=== PATIENT | female | born 1955 | race African-American/Black ===

== ENCOUNTER 2017-09-22 17:34 | Emergency (ER) | payer BC ==
--- NOTE | 2017-09-22 17:42 | PDOC ---
Rapid Medical Evaluation Chief Complaint: Pain, Acute Time Seen by Provider: 09/22/17 17:36 Medical Evaluation: Allergies Allergy/AdvReac Type Severity Reaction Status Date / Time No Known Drug Allergies Allergy Verified 09/22/17 17:35 09/22/17 17:37 The patient presents with a chief complaint of:sacha knee pain x 3 yrs. worst over 3 weeks.no fall, States knees are "bone on bone" no improvement with motrin , noncompliant with BP meds. I have performed a brief in-person evaluation of this patient. Pertinent physical exam findings: bp elevated on BUE 204/119 I have ordered the following:to verify with pharmacy The patient will proceed to the ED for further evaluation.
[2017-09-22 17:47] VITALS: TEMP 98.1; BMI 37.5
--- NOTE | 2017-09-22 18:08 | PDOC ---
History of Present Illness - General Chief Complaint: Pain, Acute Stated Complaint: PAIN IN BOTH KNEES Time Seen by Provider: 09/22/17 17:36 History Source: Patient Exam Limitations: No Limitations - History of Present Illness Initial Comments: 09/22/17 18:03 62 yr female history of HTN, high cholesterol non compliant with the HTN meds states she has pain to her knees for 3 weeks needs to see her orthopedist. Pt denies any recent trauma denies headache or dizzyness. Past History - Past Medical History Allergies/Adverse Reactions: Allergies Allergy/AdvReac Type Severity Reaction Status Date / Time No Known Drug Allergies Allergy Verified 09/22/17 17:35 Home Medications: Ambulatory Orders Naproxen [Naprosyn -] 500 mg PO BID PRN #28 tablet 09/22/17 Olmesartan/Amlodipin/Hcthiazid [Tribenzor 40-5-25 mg Tablet] 1 each PO ASDIR # 30 tablet 09/22/17 COPD: No DVT: No HTN: Yes Hypercholesterolemia: Yes - Immunization History Immunization Up to Date: Yes - Suicide/Smoking/Psychosocial Hx Smoking History: Never smoked Have you smoked in the past 12 months: No If you are a former smoker, when did you quit?: 40 YEARS AGO Information on smoking cessation initiated: No Hx Alcohol Use: No Drug/Substance Use Hx: No Substance Use Type: Alcohol Hx Substance Use Treatment: No *Physical Exam - Vital Signs Last Vital Signs Temp Pulse Resp BP Pulse Ox 98.1 F 92 H 17 194/116 98 09/22/17 17:36 09/22/17 17:36 09/22/17 17:36 09/22/17 17:36 09/22/17 17:36 - Physical Exam General Appearance: Yes: Nourished, Appropriately Dressed HEENT: positive: EOMI, YASHIRA Neck: positive: Supple Respiratory/Chest: positive: Lungs Clear, Normal Breath Sounds Cardiovascular: positive: Regular Rhythm, Regular Rate Gastrointestinal/Abdominal: positive: Normal Bowel Sounds, Soft Musculoskeletal: positive: Normal Inspection Extremity: positive: Normal Capillary Refill, Normal Inspection, Normal Range of Motion, Tender (bilateral lateral knee ttp , no swelling or redness) Integumentary: positive: Normal Color, Dry, Warm Neurologic: positive: Fully Oriented, Alert, Normal Mood/Affect, Normal Response , Motor Strength 5/5 Medical Decision Making - Medical Decision Making 09/22/17 19:02 bilateral knee pain HTN ran out of her meds denies dizzyness no headache no chest pain pt has PMD 09/22/17 19:13 BP 170/98 left arm *DC/Admit/Observation/Transfer Diagnosis at time of Disposition: Chronic pain of both knees, Chronic hypertension - Discharge Dispostion Disposition: HOME Condition at time of disposition: Good - Prescriptions Prescriptions: Naproxen [Naprosyn -] 500 mg PO BID PRN #28 tablet PRN Reason: Pain Olmesartan/Amlodipin/Hcthiazid [Tribenzor 40-5-25 mg Tablet] 1 each PO ASDIR # 30 tablet - Referrals Referrals: Adalberto Vaughan MD [Staff Physician] - Prashanth Almodovar MD [Primary Care Provider] - - Patient Instructions Additional Instructions: please call your primary care doctor tomorrow to make appointment for follow up please call your orthopedist as well to make appointment for follow up you can apply an over the counter BioFlex cream or Aspercream ointment to the knees where the area of pain is. you can take the pain medication as prescribed - Post Discharge Activity
[2017-09-22] MEDS ORDERED: HYDROCHLOROTHIAZIDE 25 MG TABLET (FP) PO ONE (18:12)
[2017-09-22] MEDS ORDERED: amLODIPine BESYLATE 5 MG TABLET (FP) PO ONE (18:12)
[2017-09-22] MEDS ORDERED: amLODIPine BESYLATE 5 MG TABLET (FP) ONE (18:17)
[2017-09-22] MEDS ORDERED: HYDROCHLOROTHIAZIDE 25 MG TABLET (FP) ONE (18:17)
[2017-09-22 19:13] VITALS: BP 180/110; PULSE 77
== END 2017-09-22 19:14 | disposition home or self-care (01) ==
LOC: JERFT 17:34
DX: M25.562 Pain in left knee (principal); M25.561 Pain in right knee; G89.29 Other chronic pain; I10 Essential (primary) hypertension; E78.00 Pure hypercholesterolemia, unspecified; Z91.14 Patient's other noncompliance with medication regimen
CPT/HCPCS: 73562-TC-LT; 73562-TC-RT; 99281-25